=== PATIENT | female | born 1970 | race Caucasian/White ===

== ENCOUNTER 2020-08-30 06:30 | Day surgery (SDC) | payer OTHER ==
[2020-08-25 11:52] VITALS: BMI 38.9
[~2020-08-30 06:30] MED LIST: LACTATED RINGERS 1,000 ML IV SCH
[2020-08-30 07:25] LABS: Glucose,Whole Blood 125 mg/dL (75-99)
[2020-08-30 07:29] VITALS: RESP 16; TEMP 96.8
[2020-08-30] MEDS ORDERED: LIDOCAINE 1% INJ 10MG/ML (20 ML MDV) ONE (07:39)
[2020-08-30] MEDS ORDERED: PROPOFOL 10 MG/ML 20 ML VIAL IV ONE (07:39)
--- NOTE | 2020-08-30 07:58 | P.PCN ---
Date of Procedure: 08/30/20 Description of Procedure: BRIEF HISTORY: Patient is a 50-year-old female presenting for outpatient esophagogastroduodenoscopy for evaluation of GERD. Patient reports a long- standing history of reflux disease. She is on omeprazole therapy daily. She reported breakthrough symptoms of reflux as well as intermittent dysphagia nighttime symptoms of aspiration. Patient was started on famotidine 40 mg nightly with some improvement in symptoms. PROCEDURE PERFORMED: Esophagogastroduodenoscopy with biopsy. 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 ESTIMATED BLOOD LOSS: Minimal. IV sedation per anesthesia. PROCEDURE: After informed consent was obtained, the patient was brought into the endoscopy unit. IV sedation was administered by Anesthesia under continuous monitoring. Initially the Olympus GIF-190 video endoscope was inserted into the mouth. Esophagus intubated without any difficulty. It was gradually advanced into the stomach and duodenum and carefully examined. The bulb and the second part of the duodenum appeared normal, with biopsies taken to rule out celiac sprue. The scope at this time was withdrawn to the stomach, adequately insufflated with air, and upon careful examination, mucosa of the antrum, body, cardia and the fundus appeared normal, except for erythema and superficial erosions of the antrum and body suggestive of moderate gastritis with biopsies taken. The scope was then withdrawn into the esophagus. The GE junction was located at 37 cm from the incisors and biopsies. The esophagus appeared normal with mid esophageal biopsies to rule out eosinophilic esophagitis . There were no erosions or ulcer ations seen and the patient tolerated the procedure well. IMPRESSION: 1. Moderate gastritis. 2. Biopsies of the duodenum, antrum body and GE junction as well as midesophagus. RECOMMENDATIONS: The findings of this examination were discussed with the patient and her family. Okay to resume diet. Okay to resume medications. Continue omeprazole and famotidine therapy. Await pathology from biopsies. Follow up in the GI clinic as scheduled. If evidence of Medina's esophagus on biopsies recommend repeat EGD in 2 years.
[2020-08-30 08:19] VITALS: BP 129/85; PULSE 65
== END 2020-08-30 08:56 | disposition home or self-care (01) ==
LOC: ORWHC2ENDO 06:30
PROVIDERS: ATTEND Internal Medicine
DX: K29.50 Unspecified chronic gastritis without bleeding (principal); R13.10 Dysphagia, unspecified; K21.9 Gastro-esophageal reflux disease without esophagitis; I10 Essential (primary) hypertension; E07.9 Disorder of thyroid, unspecified; M06.9 Rheumatoid arthritis, unspecified; G47.33 Obstructive sleep apnea (adult) (pediatric); Z79.890 Hormone replacement therapy; Z79.899 Other long term (current) drug therapy; Z88.1 Allergy status to other antibiotic agents; Z88.8 Allergy status to other drugs, medicaments and biological substances
CPT/HCPCS: 88305; 43239; J2001; J2704